=== PATIENT | female | born 2000 | race Caucasian/White ===

== ENCOUNTER → 2021-12-18 | Outpatient (CLI) | payer MEDICAID ==
--- NOTE | 2021-12-19 09:02 | XR ---
EXAMINATION TYPE: XR foot complete LT DATE OF EXAM: 12/18/2021 COMPARISON: NONE HISTORY: Pain TECHNIQUE: Three views are submitted. FINDINGS: The osseous structures are intact. There is no acute fracture or dislocation. Joint spaces are p reserved. IMPRESSION: 1. No osseous abnormality.
== END | disposition home or self-care (01) ==
LOC: RADXRYALE 16:47
PROVIDERS: ATTEND Internal Medicine
DX: M79.672 Pain in left foot (principal)

== ENCOUNTER → 2023-02-20 | Outpatient (CLI) | payer MEDICAID ==
--- NOTE | 2023-02-20 14:17 | US ---
EXAMINATION TYPE: US venous doppler duplex LE LT DATE OF EXAM: 02/20/2023 1:51 PM COMPARISON: NONE CLINICAL INDICATION: Female, 22 years old with history of R22.42 LOCALIZED SWELLING, MASS AND LUMP, L EFT LOW; Lt dist thigh large varicose vein x 8 years, now feels hard during SIDE PERFORMED: Left TECHNIQUE: The lower extremity deep venous system is examined utilizing real time linear array sonog hilary with graded compression, doppler sonography and color-flow sonography. VESSELS IMAGED: Common Femoral Vein Deep Femoral Vein Greater Saphenous Vein * Femoral Vein Popliteal Vein Small Saphenous Vein * Proximal Calf Veins (* superficial vessels) Left Leg: Negative for DVT rouleaux flow noted throughout, targeted imaging performed at the area of concern, large 2.0x1.5x1.8c m thrombosed varicose vein noted, the proximal and distal vein compresses result communicated to Dr. Shabazz IMPRESSION: Superior vein thrombosis as noted.
== END | disposition home or self-care (01) ==
LOC: RADUSWWP 13:11
PROVIDERS: ATTEND Obstetrics & Gynecology Obstetrics
DX: O22.20 Superficial thrombophlebitis in pregnancy, unspecified trimester (principal); Z3A.00 Weeks of gestation of pregnancy not specified

== ENCOUNTER 2023-06-25 05:58 | Inpatient (IN) | payer MEDICAID ==
[2023-06-25] MEDS ORDERED: METHYLERGONOVINE 0.2 MG/ML 1 ML AMP IM PRN (06:16)
[2023-06-25] MEDS ORDERED: TRANEXAMIC 1,000 MG/100ML-NACL 1,000 MG in EMPTY BAG 1 BAG IV PRN (06:16)
[2023-06-25] MEDS ORDERED: CARBOPROST TROMETHAMINE 250 MCG/ML 1 ML AMP IM PRN (06:16)
[2023-06-25] MEDS ORDERED: TERBUTALINE 1 MG/ML VIAL SQ PRN (06:16)
[2023-06-25] MEDS ORDERED: miSOPROStoL 200 MCG TAB PO PRN (06:16)
[2023-06-25] MEDS ORDERED: OXYTOCIN 10 UNIT/ML 1 ML VIAL IM PRN (06:16)
[2023-06-25] MEDS: LACTATED RINGERS 1,000 ML IV SCH (06:17)
[2023-06-25] MEDS: OXYTOCIN 30 UNITS/500 ML NS 30 UNIT in SALINE 1 500ML.BAG IV SCH (06:26)
[2023-06-25 06:40] LABS: Basophils % (A) 0 %; Eosinophils # (A) 0.1 k/uL (0-0.7); Eosinophils % (A) 2 %; HCT 36.4 % (34.0-46.0); HGB 12.1 gm/dL (11.4-16.0); Lymphocytes # (A) 1.7 k/uL (1.0-4.8); Lymphocytes % (A) 21 %; MCH 30.5 pg (25.0-35.0); MCHC 33.3 g/dL (31.0-37.0); MCV 91.5 fL (80.0-100.0); Mean Platelet Volume 9.1; Monocytes # (A) 0.5 k/uL (0-1.0); Monocytes % (A) 6 %; Neutrophils # (A) 5.8 k/uL (1.3-7.7); Neutrophils % (A) 71 %; Platelet Count 191 k/uL (150-450); RBC 3.98 m/uL (3.80-5.40); RDW 13.1 % (11.5-15.5); WBC 8.3 k/uL (3.8-10.6)
[2023-06-25] MEDS ORDERED: ROPIVACAINE 5 MG/ML 30 ML VIAL ONE (10:25)
[2023-06-25] MEDS ORDERED: fentaNYL (PF) 50 MCG/ML 5 ML AMP ONE (10:25)
[2023-06-25] MEDS ORDERED: SODIUM CHLORIDE 0.9% 250 ML BAG ONE (10:25)
[2023-06-25] MEDS ORDERED: ZOLPIDEM 5 MG TAB PO PRN (16:53)
[2023-06-25] MEDS ORDERED: SIMETHICONE 80 MG CHEWABLE PO PRN (16:53)
[2023-06-25] MEDS ORDERED: diphenhydrAMINE 50 MG/ML 1 ML VIAL IVP PRN ×2 (16:53)
[2023-06-25] MEDS ORDERED: diphenhydrAMINE 50 MG CAP PO PRN (16:53)
[2023-06-25] MEDS ORDERED: ACETAMINOPHEN TAB 325 MG TAB PO PRN (16:53)
[2023-06-25] MEDS ORDERED: LANOLIN CREAM 1 GM TUBE TOPICAL PRN (16:53)
[2023-06-25] MEDS ORDERED: diphenhydrAMINE 25 MG CAP PO PRN (16:53)
[2023-06-25] MEDS ORDERED: HYDROCORTISONE 2.5% RECTAL CREAM 30 GM TUBE RECTAL PRN (16:53)
[2023-06-25] MEDS ORDERED: OXYTOCIN 30 UNITS/500 ML NS 30 UNIT in SALINE 1 500ML.BAG IV SCH (17:00)
[2023-06-25] MEDS: IBUPROFEN 600 MG TAB PO SCH (17:19)
[2023-06-25] MEDS: LIDOCAINE 0.5% (PF) 5 MG/ML (50 ML SDV) SQ PRN (17:47)
[2023-06-25] MEDS: BENZOCAINE/MENTHOL SPRAY 1 GM/SPRAY AEROSOL TOPICAL PRN (17:48)
--- NOTE | 2023-06-25 17:57 | P.PROBDLV ---
Vaginal Delivery Note - . Vaginal Delivery Note: This is a 23-year-old 1 para 0 that was admitted to labor and delivery at 39 and 1 sevenths weeks for induction of labor. Patient was admitted to labor and delivery and Pitocin induction of labor was begun per hospital protocol. Patient underwent amniotomy and clear fluid was obtained. Patient progressed through labor eventually becoming uncomfortable and requesting epidural placement. Epidural was placed without difficulty by the anesthesia department. Patient made good progress toward complete dilation. Once patient was noted to be completely dilated she began pushing. With excellent maternal effort patient brought the down to a presentation, the anterior/posterior shoulder was delivered along with the body. Spontaneous cry was noted at . After 2-minute delay the umbilical cord is doubly clamped and cut the placenta was delivered spontaneously intact with a three-vessel cord being noted. The uterus was noted to be firm and below the umbilicus at this time. On inspection of the patient's vaginal vault a second- degree midline laceration was appreciated. This was repaired in the usual fashion with 3-0 Rapide a small amount of bleeding was appreciated on the right lateral vaginal wall therefore a [id number] suture was used to obtain hemostasis. After closure hemostasis was appreciated. Estimated blood loss 200 cc All counts were noted be correct x 2 at the end of the delivery Patient and tolerated delivery well and are resting comfortably
--- NOTE | 2023-06-25 17:58 | P.HPOB ---
History of Present Illness H&P Date: 06/25/23 Chief Complaint: IUP @ 39 weeks 23 yo at 39 weeks presents for induction of labor. Patient has been receiving routine care with myself and has been essentially uncomplicated. This morning patient notes good movement states she is having an occasional contractions denies loss of fluid or vaginal bleeding. On blood work this patient is about type of A pos, rubella status immune, hepatitis B surface engine negative, HIV negative, RPR is nonreactive, group B strep culture is negative. Review of Systems Constitutional: Denies chills, Denies fatigue, Denies fever Ears, nose, mouth and throat: Denies headache Cardiovascular: Reports leg edema Respiratory: Denies dyspnea Gastrointestinal: Denies nausea, Denies vomiting Genitourinary: Reports Past Medical History Past Medical History: No Reported History Additional Past Medical History / Comment(s): varicose veins with History of Any Multi-Drug Resistant Organisms: None Reported Additional Past Surgical History / Comment(s): wisdom teeth Past Anesthesia/Blood Transfusion Reactions: No Reported Reaction Past Psychological History: Depression Additional Psychological History / Comment(s): hx Smoking Status: Never smoker Past Alcohol Use History: None Reported Past Drug Use History: None Reported - Past Family History Mother Family Medical History: No Reported History Father Family Medical History: No Reported History Medications and Allergies Home Medications Medication Instructions Recorded Confirmed Type Aspirin 81 mg PO BID 06/25/23 06/25/23 History Calcium Carbonate [Tums] 1,000 mg PO TID 06/25/23 06/25/23 History Omeprazole Magnesium [PriLOSEC OTC] 20 mg PO DAILY 06/25/23 06/25/23 History Vit No.179/Iron/Folic 1 each PO DAILY 06/25/23 06/25/23 History [ Tablet] Allergies Allergy/AdvReac Type Severity Reaction Status Date / Time No Known Allergies Allergy Verified 06/25/23 06:14 Exam Osteopathic Statement: *. No significant issues noted on an osteopathic structural exam other than those noted in the History and Physical/Consult. Vital Signs Temp Pulse Resp BP Pulse Ox 06/25/23 06:19 97.8 F 100 18 136/90 99 Intake and Output 06/24/23 06/25/23 06/25/23 22:59 06:59 14:59 Other: Weight 108.409 kg Targeted physical exam was performed this date in general is well-nourished well-developed female in no acute distress, breathing is nonlabored, heart has a regular rhythm, abdomen is gravid and appropriate for gestational age, cervical exam she is 4/70/-2 station amniotomy was performed clear fluid was obtained. heart tones are to be category 1 and she is saroj every 2 minutes. Results Result Diagrams: 06/25/23 06:17 Assessment and Plan (1) Term Current Visit: Yes Status: Acute Code(s): Z34.90 - ENCNTR FOR SUPRVSN OF NORMAL , UNSP, UNSP TRIMESTER SNOMED Code(s): 74851175 Plan: 23-year-old 1 para 0 at 39 weeks presents for induction of labor. Pitocin induction of labor has begun per hospital protocol. Options for analg esia are discussed and she will consider.
[2023-06-25] MEDS: SENNOSIDES-DOCUSATE SODIUM 1 EACH TAB PO SCH (23:25)
[2023-06-26 08:40] LABS: Basophils % (A) 0 %; Eosinophils # (A) 0.1 k/uL (0-0.7); Eosinophils % (A) 1 %; HCT 29.2 % (34.0-46.0); HGB 10.2 gm/dL (11.4-16.0); Lymphocytes # (A) 1.4 k/uL (1.0-4.8); Lymphocytes % (A) 10 %; MCHC 34.9 g/dL (31.0-37.0); MCV 91.6 fL (80.0-100.0); Mean Platelet Volume 9.7; Monocytes # (A) 0.5 k/uL (0-1.0); Monocytes % (A) 4 %; Neutrophils # (A) 11.7 k/uL (1.3-7.7); Neutrophils % (A) 85 %; Platelet Count 148 k/uL (150-450); RBC 3.18 m/uL (3.80-5.40); RDW 13.5 % (11.5-15.5); WBC 13.8 k/uL (3.8-10.6)
--- NOTE | 2023-06-26 13:13 | P.PNOBGVD ---
Subjective - Subjective Principal diagnosis: day #1 Interval history: Patient is doing well . She is ambulating and voiding without difficulty. She is tolerating a regular diet without nausea or vomiting. Her lochia is minimal to moderate. She is breast-feeding without difficulty. States her pain is well-controlled. Patient reports: Reports appetite normal, Reports voiding normally, Reports pain well controlled, Reports ambulating normally : doing well, nursing well Objective - Latest Vital Signs Latest vital signs: Vital Signs Temp Pulse Resp BP Pulse Ox 06/26/23 04:50 98.0 F 68 18 138/52 06/25/23 20:50 98.5 F 145 H 42 H 06/25/23 18:50 112 H 18 147/87 06/25/23 18:35 104 H 18 135/74 06/25/23 18:20 111 H 18 142/86 06/25/23 18:05 100 18 140/77 06/25/23 17:50 93 18 143/77 06/25/23 17:35 113 H 18 138/79 06/25/23 17:20 115 H 18 123/87 06/25/23 17:05 100 18 134/85 06/25/23 16:50 98.8 F 108 H 18 136/83 99 Intake and Output 06/25/23 06/26/23 06/26/23 22:59 06:59 14:59 Output Total 1855 Balance -1855 Output: Estimated Blood Loss 200 Output, Quantitative 1655 Blood Loss Other: Voiding Method Toilet # Voids 2 3 - Exam Extremities: Present: normal, edema Abdomen: Present: normal appearance, soft Uterus: Present: normal, firm - Labs Labs: Abnormal Lab Results - Last 24 Hours (Table) 06/26/23 Range/Units 07:51 WBC 13.8 H (3.8-10.6) k/uL RBC 3.18 L (3.80-5.40) m/uL Hgb 10.2 L (11.4-16.0) gm/dL Hct 29.2 L (34.0-46.0) % Plt Count 148 L (150-450) k/uL Neutrophils # 11.7 H (1.3-7.7) k/uL Assessment and Plan (1) Term Current Visit: Yes Status: Acute Code(s): Z34.90 - ENCNTR FOR SUPRVSN OF NORMAL , UNSP, UNSP TRIMESTER SNOMED Code(s): 61324579 (2) Status post normal vaginal delivery Current Visit: Yes Status: Acute Code(s): KVL8355 - SNOMED Code(s): 994717349 (3) Obstetrical laceration, second degree Current Visit: Yes Status: Acute Code(s): O70.1 - SECOND DEGREE PERINEAL LACERATION DURING DELIVERY SNOMED Code(s): 7917998 Plan: 23-year-old G1 now P1 status postnormal spontaneous vaginal delivery on this day #1. She is doing well. Plan to continue routine care.
[2023-06-26 16:56] VITALS: BP 143/86; PULSE 92; RESP 17; TEMP 97.8
== END 2023-06-26 17:15 | disposition home or self-care (01) | DRG 807 ==
LOC: 4FBP 05:58
PROVIDERS: ADMIT Obstetrics & Gynecology Obstetrics; ATTEND Obstetrics & Gynecology Obstetrics
PROC: 3E033VJ Introduction of Other Hormone into Peripheral Vein, Percutaneous Approach (ICD-10-PCS; principal; 2023-06-25)
PROC: 10907ZC Drainage of Amniotic Fluid, Therapeutic from Products of Conception, Via Natural or Artificial Opening (ICD-10-PCS; principal; 2023-06-25)
PROC: 10E0XZZ Delivery of Products of Conception, External Approach (ICD-10-PCS; principal; 2023-06-25)
PROC: 0KQM0ZZ Repair Perineum Muscle, Open Approach (ICD-10-PCS; principal; 2023-06-25)
DX: O70.1 Second degree perineal laceration during delivery (principal); Z37.0 Single live birth; Z3A.39 39 weeks gestation of pregnancy; Z79.82 Long term (current) use of aspirin; Z79.899 Other long term (current) drug therapy; Z28.310 Unvaccinated for COVID-19
CPT/HCPCS: 85025; 86850; 86900; 86901